=== PATIENT | female | born 1960 | race Hispanic/Latino ===

== ENCOUNTER 2016-07-21 12:17 | Day surgery (SDC) | payer BC ==
[~2016-07-21 12:17] MED LIST: NACL 0.9% 1000 ML 1,000 ML IV SCH; PEPCID PO NR; VERSED IV NR; ZOFRAN IV PRN
[2016-07-21] MEDS ORDERED: DIPRIVAN 10 MG/ML IV ONE (12:54)
[2016-07-21] MEDS ORDERED: SUBLIMAZE ONE (12:54)
[2016-07-21] MEDS ORDERED: BREVIBLOC IV ONE (13:00)
[2016-07-21] MEDS ORDERED: NEO SYNEPHRINE/NS Syringe(OR USE) IV ONE (13:00)
[2016-07-21] MEDS ORDERED: ZOFRAN IV PRN (13:07)
[2016-07-21] MEDS ORDERED: DECADRON ONE ×2 (13:07→14:18)
[2016-07-21] MEDS ORDERED: ZEMURON IV ONE (13:07)
[2016-07-21] MEDS ORDERED: XYLOCAINE MPF 2% ONE (13:07)
--- NOTE | 2016-07-21 13:07 | Anesthesia Day of Surgery ---
Anesthesia Day of Surgery - Day of Surgery Patient Examined: Yes Patient H&P Reviewed: Yes Patient is NPO: Yes
--- NOTE | 2016-07-21 13:07 | Anesthesia Consultation ---
Anesthesia Consult and Med Hx Date of service: 07/21/16 - Airway Anesthetic Teeth Evaluation: Good, Chipped (top right molar) ROM Head & Neck: Adequate Mental/Hyoid Distance: Adequate Mallampati Class: Class II Intubation Access Assessment: Probably Good - Pulmonary Exam CTA: Yes - Cardiac Exam Cardiac Exam: RRR - Pre-Operative Health Status ASA Pre-Surgery Classification: ASA2 Proposed Anesthetic Plan: General - Pulmonary Hx Smoking: Yes (CIGARETTES 1 1/2 PPD X 30 YRS, QUIT IN 2006) Hx Asthma: Yes COPD: Yes - Cardiovascular System Hx Hypertension: No - Central Nervous System Hx Seizures: No CVA: No Hx Back Pain: Yes (AND NECK PAIN) Hx Psychiatric Problems: Yes - Endocrine Hx Renal Disease: No Hx Cirrhosis: No Hx Thyroid Disease: No - Other Systems Hx Cancer: No Hx Obesity: No
[2016-07-21] MEDS ORDERED: ROBINUL ONE ×2 (13:08)
[2016-07-21] MEDS ORDERED: NACL BACTERIOSTATIC INFILTRATI ONE (13:26)
[2016-07-21] MEDS ORDERED: PROVENTIL IH ONE (13:35)
[2016-07-21] MEDS ORDERED: MARCAINE 0.25% INFILTRATI ONE ×3 (13:45→14:19)
[2016-07-21] MEDS ORDERED: LOVENOX SUB-Q NR (14:00)
[2016-07-21] MEDS ORDERED: ANCEF/STERILE WATER 2 GM/20 ML IV NR (14:00)
[2016-07-21] MEDS ORDERED: NACL 0.9% IR ONE (14:19)
[2016-07-21] MEDS ORDERED: DILAUDID ONE (14:28)
[2016-07-21] MEDS ORDERED: NORMODYNE IV ONE (14:44)
--- NOTE | 2016-07-21 14:57 | Short Stay Summary ---
Short Stay Documentation Date of service: 07/21/16 Narrative H&P: see H&P - Allergies and Medications Current Medications: Allergies No Known Allergies Allergy (Verified 01/13/13 23:01) Home Medications Medication Instructions Recorded Confirmed Last Taken Type Tiotropium [Spiriva] 18 mcg IH QDAY 01/13/13 07/16/16 07/21/16 11:00 History ALBUTEROL Inhaler [Proair] 2 puff IH QID PRN 07/16/16 07/16/16 07/21/16 11:00 History ALPRAZolam [Xanax TAB] 1 mg PO TID PRN 07/16/16 07/16/16 07/16/16 History HYDROcodone/APAP 10-325 [Davilla 1 each PO Q8HR PRN 07/16/16 07/16/16 07/16/16 History 10/325] Ibuprofen [Motrin] 800 mg PO Q8HR PRN 07/16/16 07/21/16 1 Week Ago History Phentermine HCl 37.5 mg PO QDAY 07/16/16 07/16/16 07/16/16 History traMADol [Ultram] 50 mg PO Q12HR PRN 07/16/16 07/16/16 07/16/16 History Active Medications Cefazolin Sodium (Ancef/Sterile Water 2 Gm/20 Ml) 2 gm IV PREOP NR Stop: 07/21/16 23:59 Enoxaparin Sodium (Lovenox) 40 mg SUB-Q PREOP NR Stop: 07/21/16 23:59 Last Admin: 07/21/16 13:41 Dose: 40 mg Famotidine (Pepcid) 20 mg PO PREOP NR Stop: 07/21/16 23:00 Last Admin: 07/21/16 13:22 Dose: 20 mg Hydromorphone HCl (Dilaudid) 0.5 mg IV Q10MIN PRN PRN Reason: Pain , Severe (7-10) Stop: 07/24/16 12:05 Sodium Chloride (Nacl 0.9% 1000 Ml) 1,000 mls @ 42 mls/hr IV DIRECT YOLANDA Last Admin: 07/21/16 13:25 Dose: 42 mls/hr Midazolam HCl (Versed) 2 mg IV PREOP NR Stop: 07/21/16 23:59 Last Admin: 07/21/16 13:41 Dose: 2 mg - Brief post op/procedure progress note Date of procedure: 07/21/16 Pre-op diagnosis: RIH Post-op diagnosis: other (ventral hernia) Procedure: lap RIH with mesh, ventral hernia repair Anesthesia: GETA Findings: incarcerated inguinal hernia, ventral hernia Surgeon: NIKKI DAVIES (harshil Sethi) Estimated blood loss: none Pathology: none Condition: stable Short Stay Discharge Plan Activity: advance as tolerated Weight Bearing Status: Weight Bear as Tolerated Diet: regular Wound: open to air Follow up with: NIKKI DAVIES MD [Staff Physician] - 7 Days
[2016-07-21] MEDS: DILAUDID IV PRN ×4 (15:35→16:00)
[2016-07-21 16:24] VITALS: BP 128/92
--- NOTE | 2016-07-21 20:09 | Operative Report ---
PREOPERATIVE DIAGNOSIS: Incarcerated right inguinal hernia. POSTOPERATIVE DIAGNOSES: Incarcerated right inguinal hernia and ventral hernia. PROCEDURE: Laparoscopic right inguinal hernia repair with mesh and ventral hernia repair. SURGEON: Andres Cordero MD LOCK EXPERT: Bonnie Sethi. ANESTHESIA: General anesthesia. ESTIMATED BLOOD LOSS: Minimal. COMPLICATIONS: None. DRAINS: None. SPECIMEN: None. The patient tolerated the procedure well. FINDINGS: Incarcerated inguinal hernia with omentum and a small ventral hernia. The inguinal hernia repaired with mesh. The ventral hernia repaired primarily. INDICATIONS: This is a 56-year-old female with an incarcerated inguinal hernia here for repair. DESCRIPTION OF PROCEDURE: The patient taken to OR, placed supine on the operating room table. Once anesthesia was obtained, her anterior abdominal wall was prepped and draped in sterile fashion. A transverse supraumbilical incision was made, approximately 1 cm length incision. A Veress needle was placed in the peritoneal cavity. CO2 was used to insufflate the peritoneal cavity and 10 mm trocar was placed in the peritoneal cavity. A 5 mm trocar was placed in the ____ side of the rectus fascia. The patient was placed in Trendelenburg. There was an incarcerated omentum in the right inguinal hernia. The left side was normal. The omentum was incarcerated and the sac had to be bluntly manipulated out. There were some adhesions to the sac wall, which also had to be lysed to get all of the omentum out. No bowel was in the hernia sac. A preperitoneal pocket was then made starting above the inguinal canal or inguinal canal extending inferiorly. The cord contents were then dissected around for future mesh placement once adequate medial margin of Boubacar's ligament and hernia sac was completely reduced back in the peritoneal cavity. A piece of 4 x 6 cut polyester mesh was placed in the pocket and secured around the round ligament and secured appropriately and found to be in good position. After adequate hemostasis, the tacker was used to secure the mesh in place as well as the peritoneum was reattached superiorly. After this was completed, all ports removed and the CO2 evacuated. Dissected down the rectus fascia, at the 10 mm trocar site, found to have ventral hernia about 1 cm in diameter. This was dissected down to the fascial margins, the hernia sac was transected and the hernia sac and 10 mm site were then closed primarily together with 0 Vicryl in [id number] fashion. After adequate hemostasis, the skin was approximated in subcuticular technique and Dermabond was placed on the incision. The patient tolerated the procedure well. JOB# [id number] PAZ/REZA
== END 2016-07-21 16:50 | disposition home or self-care (01) ==
LOC: OR 12:17
PROVIDERS: ATTEND Surgery
DX: K40.31 Unilateral inguinal hernia, with obstruction, without gangrene, recurrent (principal); K43.9 Ventral hernia without obstruction or gangrene; J44.9 Chronic obstructive pulmonary disease, unspecified; J45.909 Unspecified asthma, uncomplicated; Z87.891 Personal history of nicotine dependence
CPT/HCPCS: 49650; 49652; C1781; J0690; J1100; J1170; J1650; J2250; J2370; J2704; J3010; J7030